=== PATIENT | female | born 1990 | race Caucasian/White ===

== ENCOUNTER 2018-12-15 22:37 | Observation (INO) | payer BC, OTHER ==
[2018-12-15] MEDS ORDERED: NORMAL SALINE 1000 ML 1,000 ML IV ONE (22:55)
[2018-12-15] MEDS ORDERED: NORMAL SALINE 250 ML IV PRN (23:08)
[2018-12-15] MEDS ORDERED: ONDANSETRON HCL INJ/PF 4 MG/2 ML SDV ONE (23:12)
--- NOTE | 2018-12-15 23:23 | ER Document Report ---
ED General - General Chief Complaint: Vaginal Bleeding Stated Complaint: VAGINAL BLEEDING Time Seen by Provider: 12/15/18 22:54 Notes: Patient is a 19-year-old female who is . She had 3 elective abortions. An elective 20 days ago. She says a chemical elective . She is 8 weeks at that time. She initially had some bleeding for the first week. She did follow-up appointment earlier this week and an ultrasound and told everything looked okay. This is at [facility] in [place]. She said last 24 hours start having heavy bleeding is passed several large clots and continues to bleed and hemorrhage. She is passed out 3 times today. Just prior to coming to the room she passed out in the bathroom with her next to her. Chronic initial examination patient is very pale and very lightheaded and looks unwell. She has no history of bleeding disorders. No history of hemophilia. Her first she developed a large amount of bleeding after delivery and required several units of blood. TRAVEL OUTSIDE OF THE [place] IN LAST 30 DAYS: No Past Medical History - Social History Smoking Status: Never Smoker Frequency of alcohol use: None Drug Abuse: None Family History: Reviewed & Not Pertinent Review of Systems - Review of Systems Notes: My Normal Review Basic REVIEW OF SYSTEMS: CONSTITUTIONAL : Denies fever, chills, or sweats. Denies recent illness. RESPIRATORY: Denies cough, cold, or chest congestion. Denies shortness of breath, difficulty breathing, or wheezing. GASTROINTESTINAL: suprapubic abdominal pain. Denies nausea, vomiting, or d iarrhea. GENITOURINARY: Denies difficulty urinating, painful urination, burning, frequency, or blood in urine. FEMALE GENITOURINARY: Heavy vaginal bleeding MUSCULOSKELETAL: Denies neck or back pain or joint pain or swelling. SKIN: Denies rash or skin lesions. HEMATOLOGIC : Denies easy bruising or bleeding. NEUROLOGICAL: Possible syncopal episodes. Denies headache. Denies weakness or paralysis or loss of use of either side. Denies problems with gait or speech. Denies sensory or motor loss. ALL OTHER SYSTEMS REVIEWED AND NEGATIVE. Physical Exam - Vital signs Vitals: Temp Pulse Resp BP Pulse Ox 97.9 F 96 18 82/52 L 100 12/15/18 22:48 12/15/18 22:48 12/15/18 22:48 12/15/18 22:48 12/15/18 22:48 - Notes Notes: General Appearance: Very pale and weak appearing. Vitals: reviewed, See vital signs table. Head: no swelling or tenderness to the head Eyes: PERRL, EOMI, Conjuctiva clear Mouth: No decreasd moisture Lungs: No wheezing, No rales, No rhonci, No accessory muscle use, good air exchange bilaterally. Heart: Normal rate, Regular rythm, No murmur, no rub Abdomen: Normal BS, soft, No rigidity, lower abdominal tenderness to palpation., No guarding, no rebound, no abdominal masses But exam: Patient has blood currently coming from the vaginal area. I did external pelvic exam. Speculum not available at bedside at this time as patient is currently being resuscitated where focusing on that. Speculum exam therefore not yet performed. Extremities: good pulses in all extremities, no swelling or tenderness in the extremities, no edema. Skin: warm, dry, appropriate color, no rash Neuro: speech clear, oriented x 3, normal affect, responds appropriately to questions. Course - Re-evaluation Re-evalutation: 12/15/18 23:21 Went to the room immediately as I saw the patient was hypotensive. When I arrived in the room patient's being brought to the bathroom where she syncopized . She is pale and can barely keep her head up. She looks very anemic and very weak. We get her in the bed. She has a hard time maintaining consciousness and is very weak. 2 large bore IVs were placed. I immediately ordered emergency release blood. IV fluids started. Patient's blood pressure currently is 81/52. She is not tachycardic. I looked quickly at the vaginal area and she does have some blood coming from vaginal area. She says she passed large clots in the toilet. I immediately called vice president talent management rayon tester, Dr. Nola Correa. She is currently at bedside assessing the patient. 12/15/18 23:36 Since blood pressure is now systolically in the 90s. Her initial temp was 95.5. Is now 97.5. They are arranging to take her to the OR. She is starting to get some of her color back. She is starting to look improved. - Vital Signs Vital signs: Temp Pulse Resp BP Pulse Ox 98.6 F 67 16 95/47 L 99 12/16/18 06:26 12/16/18 06:26 12/16/18 06:26 12/16/18 06:26 12/16/18 06:26 - Laboratory Result Diagrams: 12/15/18 23:06 12/15/18 23:06 Laboratory results interpreted by me: 12/15/18 12/15/18 12/15/18 23:06 23:06 23:06 WBC 16.7 H RBC 3.29 L Hgb 9.5 L Hct 27.7 L Absolute Neutrophils 12.8 H Potassium 3.5 L Glucose 150 H Serum HCG, Qual Crossmatch See Detail 12/15/18 23:06 WBC RBC Hgb Hct Absolute Neutrophils Potassium Glucose Serum HCG, Qual POSITIVE H Crossmatch Critical Care Note - Critical Care Note Total time excluding time spent on procedures (mins): 35 Comments: Critical care time for this patient not including time spent in procedures approximately 35 minutes due to treatment of hemorrhagic shock, blood transfusion, resuscitation with IV fluids, multiple re-evaluations. Discharge - Discharge Clinical Impression: Vaginal hemorrhage, Hemorrhagic shock Condition: Serious Disposition: ADMITTED INPATIENT Admitting Provider: [facility] Admitted: OR
[2018-12-15 23:29] LABS: ABSOLUTE EOSINOPHILS # (AUTO) 0.1 10^3/uL (0.0-0.6); ABSOLUTE LYMPHOCYTES (AUTO) 2.7 10^3/uL (0.5-4.7); ABSOLUTE MONOCYTES (AUTO) 1.1 10^3/uL (0.1-1.4); ABSOLUTE NEUT (AUTO) 12.8 10^3/uL (1.7-8.2); BASOPHILS % (AUTO) 0.2 % (0-2); EOSINOPHILS % (AUTO) 0.7 % (0-6); HEMATOCRIT 27.7 % (36.0-47.0); HEMOGLOBIN 9.5 g/dL (12.0-15.5); LYMPHOCYTES % (AUTO) 16.3 % (13-45); MEAN CORPUSCULAR HEMOGLOBIN 28.8 pg (27.0-33.4); MEAN CORPUSCULAR HGB CONC 34.2 g/dL (32.0-36.0); MEAN CORPUSCULAR VOLUME 84 fl (80-97); MONOCYTES % (AUTO) 6.5 % (3-13); PLATELET COUNT 395 10^3/uL (150-450); RED BLOOD COUNT 3.29 10^6/uL (3.72-5.28); RED CELL DISTRIBUTION WIDTH 13.3 % (11.5-14.0); SEGMENTED NEUTROPHILS % (AUTO) 76.3 % (42-78); TOTAL CELLS COUNTED % (AUTO) 100 %; WHITE BLOOD COUNT 16.7 10^3/uL (4.0-10.5)
[2018-12-15 23:42] LABS: ANION GAP 10 (5-19); BLOOD UREA NITROGEN 8 mg/dL (7-20); CALCIUM 9.3 mg/dL (8.4-10.2); CARBON DIOXIDE 24 mmol/L (22-30); CHLORIDE 104 mmol/L (98-107); GLUCOSE 150 mg/dL (75-110); POTASSIUM 3.5 mmol/L (3.6-5.0); SODIUM 138.3 mmol/L (137-145)
[2018-12-15] MEDS ORDERED: FENTANYL CITRATE INJ/PF 100 MCG/2 ML AMPUL ONE (23:54)
[2018-12-15] MEDS ORDERED: KETAMINE HCL INJ 500 MG/10 ML VIAL ONE (23:54)
[2018-12-15] MEDS ORDERED: MIDAZOLAM 2 MG/2 ML INJ ONE (23:54)
--- NOTE | 2018-12-15 23:54 | PDOC H&P ---
History of Present Illness Admission Date/PCP: JONATHAN CLEMENT Patient complains of: Vaginal bleeding, syncope History of Present Illness: REG POWERS is a 27 year old female who had termination using medication from [facility] 20days ago. She reports going for the f/u uls and visit and was told that everything was passed. She had some spotting prior to today. Tonight, heavy bleeding started and she had some syncopal episodes. In ER, hypotensive, passing clots vaginally, syncope. Currently getting emergency blood transfusion. Past Medical History Gynecological Infection: No Obstetrical History: none - , EAB x 3 via oral medication Past Surgical History Past Surgical History: Reports: Other - Surgery on R leg Social History Information Source: Patient Lives with: Spouse/Significant other Smoking Status: Never Smoker Family History Family History: Reviewed & Not Pertinent Parental Family History Reviewed: No Children Family History Reviewed: Yes Sibling(s) Family History Reviewed.: No Physical Exam - Physical Exam Vital Signs: Temp Pulse Resp BP Pulse Ox 97.9 F 96 18 82/52 L 100 12/15/18 22:48 12/15/18 22:48 12/15/18 22:48 12/15/18 22:48 12/15/18 22:48 Intake & Output 12/14/18 12/15/18 12/16/18 06:59 06:59 06:59 Weight 56.699 kg - Gynecological Exam Labia: other - Normal-appearing but exam limited by blood on labia/perineum Vagina: other - Speculum exam attempted but pt would not relax to allow exam Result Laboratory Results: 12/15/18 23:06 12/15/18 23:06 WBC 16.7 H RBC 3.29 L Hgb 9.5 L Hct 27.7 L MCV 84 MCH 28.8 MCHC 34.2 RDW 13.3 Plt Count 395 Seg Neutrophils % 76.3 Lymphocytes % 16.3 Monocytes % 6.5 Eosinophils % 0.7 Basophils % 0.2 Absolute Neutrophils 12.8 H Absolute Lymphocytes 2.7 Absolute Monocytes 1.1 Absolute Eosinophils 0.1 Absolute Basophils 0.0 Assessment & Plan - Diagnosis (1) Vaginal hemorrhage Is this a current diagnosis for this admission?: Yes Plan: Heavy bleeding evidenced by copious blood on perineum. Unable to perform speculum exam d/t pt participation. Given hypotension, heavy bleeding, will take to OR for D&C. Pt and significant other aware of POC and agreeable. R/B/A of procedure explained to pt. (2) Hemorrhagic shock Is this a current diagnosis for this admission?: Yes Plan: Cont transfusion in OR x 2 units. Hold remaining 2 units until reassessed after surgery. Cont measures began by ER staff. Pt clinical condition improving.
[2018-12-15] MEDS ORDERED: PROPOFOL INJ 200 MG/20 ML VIAL IV ONE (23:55)
[2018-12-16] MEDS ORDERED: NORMAL SALINE 1000 ML 1,000 ML IV PRN (00:05)
[2018-12-16 00:31] LABS: INTERNATIONAL RATION (INR) 1.31; PROTHROMBIN TIME 16.9 SEC (11.4-15.4)
[2018-12-16 00:32] LABS: PARTIAL THROMBOPLASTIN TIME 36.9 SEC (23.5-35.8)
[2018-12-16] MEDS ORDERED: PROMETHAZINE HCL INJ 25 MG/1 ML VIAL IV PRN ×2 (00:59→01:17)
[2018-12-16] MEDS ORDERED: ONDANSETRON HCL INJ/PF 4 MG/2 ML SDV IV PRN ×2 (00:59→01:19)
[2018-12-16] MEDS ORDERED: DIPHENHYDRAMINE HCL 50 MG/ML VIAL IV PRN ×2 (00:59→01:20)
[2018-12-16] MEDS ORDERED: MEPERIDINE HCL/PF INJ 25 MG/1 ML DISP.SYRIN IV PRN (00:59)
[2018-12-16] MEDS ORDERED: FENTANYL CITRATE INJ/PF 100 MCG/2 ML AMPUL IV PRN ×3 (00:59)
--- NOTE | 2018-12-16 01:15 | Brief Operative Note ---
BRIEF OPERATIVE REPORT DATE OF SURGERY: 12/16/18 TIME OF SURGERY: 01:14 PREOPERATIVE DIAGNOSIS: Retained products of conception POSTOPERATIVE DIAGNOSIS: Same SURGEON: ALEKS JAUREGUI FINDINGS: POC COMPLICATIONS: None ESTIMATED BLOOD LOSS: 50ml TISSUE REMOVED OR ALTERED: POC TECHNICAL PROCEDURE: Suction D&C
[2018-12-16] MEDS ORDERED: DEXTROSE 5%-LACTATED RINGERS 1,000 ML IV PRN (01:17)
[2018-12-16] MEDS ORDERED: OXYCODONE-ACETAMINOPHEN 5-325 MG TABLET PO PRN (01:20)
[2018-12-16] MEDS ORDERED: ONDANSETRON HCL INJ/PF 4 MG/2 ML SDV ONE (01:21)
[2018-12-16] MEDS ORDERED: ACETAMINOPHEN 1,000 MG/100 ML RTUPB IV ONE (01:21)
[2018-12-16] MEDS ORDERED: PROMETHAZINE HCL INJ 25 MG/1 ML VIAL ONE (01:22)
[2018-12-16] MEDS ORDERED: HYDROMORPHONE HCL INJ/PF 2 MG/ML AMPULE ONE (01:30)
[2018-12-16] MEDS ORDERED: METOCLOPRAMIDE HCL INJ/PF 10 MG/2 ML SDV ONE (01:34)
[2018-12-16 07:12] LABS: HEMATOCRIT 24.4 % (36.0-47.0); HEMOGLOBIN 8.6 g/dL (12.0-15.5); MEAN CORPUSCULAR HEMOGLOBIN 29.6 pg (27.0-33.4); MEAN CORPUSCULAR HGB CONC 35.1 g/dL (32.0-36.0); MEAN CORPUSCULAR VOLUME 84 fl (80-97); PLATELET COUNT 192 10^3/uL (150-450); RED CELL DISTRIBUTION WIDTH 13.6 % (11.5-14.0); WHITE BLOOD COUNT 8.4 10^3/uL (4.0-10.5)
[2018-12-16] MEDS ORDERED: SUCCINYLCHOLINE CHLORIDE INJ 200 MG/10 ML VIAL ONE (09:00)
--- NOTE | 2018-12-16 09:09 | PDOC DISCHARGE SUMMARY ---
General - Admit/Disc Date/PCP Admission Date/Primary Care Provider: 12/15/18 23:52 ILDA ASHRAF MD Discharge Date: 12/16/18 - Discharge Diagnosis (1) Status post D&C Is this a current diagnosis for this admission?: Yes (2) Acute blood loss anemia Is this a current diagnosis for this admission?: Yes (3) Syncope Is this a current diagnosis for this admission?: Yes - Additional Information Resuscitation Status: Full Code Discharge Diet: As Tolerated History of Present Illness Patient complains of: heavy vaginal bleeding after an elective 20 days ago History of Present Illness: REG POWERS is a 27 year old presented the ED c/o heavy vaginal bleeding. Pt stated that she had an elective termination 20 days ago with medication and had follow up. The follow up US showed all products passed. She then started bleeding heavily last night and had fainted. Pt was transfused and was taken to the OR for a Suction D&C, performed by Dr. Nation. Hospital Course Hospital Course: Pt responded well to the blood transfusion and surgery. She is having only spotting and has no tachycardia. She is tolerating a regular diet. Physical Exam - Physical Exam Vital Signs: Temp Pulse Resp BP Pulse Ox 98.0 F 70 16 96/47 L 100 12/16/18 08:03 12/16/18 08:03 12/16/18 08:03 12/16/18 08:03 12/16/18 08:03 Intake & Output 12/15/18 12/16/18 12/17/18 06:59 06:59 06:59 Intake Total 4700 Output Total 50 Balance 4650 Weight 56.699 kg General appearance: PRESENT: no acute distress Respiratory exam: PRESENT: clear to auscultation jovi Cardiovascular exam: PRESENT: RRR GI/Abdominal exam: PRESENT: normal bowel sounds, soft Extremities exam: ABSENT: calf tenderness, clubbing, full ROM, joint swelling, pedal edema, tenderness, +1 edema, +2 edema, other - Gynecological Exam Labia: other - Normal-appearing but exam limited by blood on labia/perineum Vagina: other - Speculum exam attempted but pt would not relax to allow exam Result Laboratory Results: 12/16/18 06:56 12/15/18 23:06 12/15/18 12/15/18 12/15/18 23:06 23:06 23:06 WBC 16.7 H RBC 3.29 L Hgb 9.5 L Hct 27.7 L MCV 84 MCH 28.8 MCHC 34.2 RDW 13.3 Plt Count 395 Seg Neutrophils % 76.3 Lymphocytes % 16.3 Monocytes % 6.5 Eosinophils % 0.7 Basophils % 0.2 Absolute Neutrophils 12.8 H Absolute Lymphocytes 2.7 Absolute Monocytes 1.1 Absolute Eosinophils 0.1 Absolute Basophils 0.0 Sodium 138.3 Potassium 3.5 L Chloride 104 Carbon Dioxide 24 Anion Gap 10 BUN 8 Creatinine 0.61 Est GFR ( Amer) > 60 Est GFR (Non-Af Amer) > 60 Glucose 150 H Calcium 9.3 Serum HCG, Qual Blood Type O POSITIVE Antibody Screen NEGATIVE 12/15/18 12/16/18 23:06 06:56 WBC 8.4 RBC 2.90 L Hgb 8.6 L Hct 24.4 L MCV 84 MCH 29.6 MCHC 35.1 RDW 13.6 Plt Count 192 Seg Neutrophils % Lymphocytes % Monocytes % Eosinophils % Basophils % Absolute Neutrophils Absolute Lymphocytes Absolute Monocytes Absolute Eosinophils Absolute Basophils Sodium Potassium Chloride Carbon Dioxide Anion Gap BUN Creatinine Est GFR ( Amer) Est GFR (Non-Af Amer) Glucose Calcium Serum HCG, Qual POSITIVE H Blood Type Antibody Screen Plan Discharge Plan: 1. Discharge home 2. Follow up with INFORMATION TECHNOLOGY PROJECT MANAGER in 2 weeks
[2018-12-16 10:20] VITALS: BP 92/53
[2018-12-16] MEDS ORDERED: IRON SUCROSE COMPLEX INJ/PF 100 MG/5 ML SDV IV ONE (10:30)
== END 2018-12-16 12:30 | disposition home or self-care (01) ==
LOC: ER 22:37 → INTOOBSV 23:52 → EH 23:52 → 2S 12-16 02:06
PROVIDERS: ADMIT Obstetrics & Gynecology; ATTEND Obstetrics & Gynecology
PROC: 30233N1 Transfusion of Nonautologous Red Blood Cells into Peripheral Vein, Percutaneous Approach (ICD-10-PCS; principal; 2018-12-15)
PROC: 10D17ZZ Extraction of Products of Conception, Retained, Via Natural or Artificial Opening (ICD-10-PCS; 2018-12-16)
DX: O07.39 Failed attempted termination of pregnancy with other complications (principal); D62 Acute posthemorrhagic anemia; R55 Syncope and collapse; I95.9 Hypotension, unspecified; Z87.59 Personal history of other complications of pregnancy, childbirth and the puerperium
CPT/HCPCS: 99291; 96361; 96374; 86900; 86901; 36415 ×2; 36430; 86850; 84703; 85025; 85027; 85610; 85730; 80048; 86920; 88305 ×2; 59812; P9016 ×2; J2250; J1756; J3010; J2765; J1170; J2550; J0330; J2405 ×2; J7030 ×2; J7050; J2704; J0131; 940; J3490